=== PATIENT | female | born 1980 ===

== ENCOUNTER 2025-08-31 08:09 | Outpatient (AMB) | payer BC, SELFPAY ==
--- OUTSIDE RECORDS SUMMARY | 2024-06-24 06:20 | XMS_ITS ---
Author Organization [facility] Address [address] [place] [phone] Care Team Providers Care Zipper Ironer Name Role Phone VA MORENO Unavailable [phone] REASON FOR VISIT KNEE PAIN..ZOCDOC Encounters Encounter Location Date Provider Diagnosis [facility] [address] [place] [address] [phone] 06/24/2024 VA MORENO Plan Of Treatment No Information Progress Notes * DANIEL KRISHNADOB:[birth year] (45 yo F)Acc No.[id number]:06/24/2024 Progress Notes Patient: DANIEL PETERSON Provider: Leopoldo Moreno M.D. :1980 A ge:43 Y S ex:Female Date:06/24/2024 Address:[address] [place] [address] Subjective: * Chief Complaints: * 1 . KNEE PAIN..ZOCDOC. * Medical History: Objective: * Vitals: Assessment: Plan: * Treatment: * Images: * Electronic signature of GRADY MORENO MD on 08/31/2025 at 08:14 AM EST Sign off status: Pending * Provider: Leopoldo Moreno M.D. Date: Generated for Gaston landaverde/Pascual/eTkaylasmitting on: 08:14 AM EST
--- OUTSIDE RECORDS SUMMARY | 2024-07-22 06:00 | XMS_ITS ---
Author Organization [facility] Address [address] [place] [phone] Care Team Providers Care Physician Office Nurse Name Role Phone TIFFANIE VA Unavailable [phone] REASON FOR VISIT ZOCDOC Encounters Encounter Location Date Provider Diagnosis [facility] [address] [place] [phone] 07/22/2024 VA MORENO Plan Of Treatment No Information Progress Notes * DANIEL KRISHNADOB:[birth year] (45 yo F)Acc No.[id number]:07/22/2024 Progress Notes Patient: DANIEL PETERSON Provider: Leopoldo Moreno M.D. :1980 A ge:43 Y S ex:Female Date:07/22/2024 Address:[address] [place] [address] Subjective: * Chief Complaints: * 1 . ZOCDOC. * Medical History: Objective: * Vitals: Assessment: Plan: * Treatment: * Images: * Electronic signature of GRADY MORENO MD on 08/31/2025 at 08:14 AM EST Sign off status: Pending * Provider: Leopoldo Moreno M.D. Date: 09/21/2023 Generated for Gaston landaverde/Pascual/Meganitting on: 08:14 AM EST
--- NOTE | 2025-08-31 08:13 | A.OFFPC_ITS ---
Vital Signs 08/31/25 08:14 Height 5 ft 7 in Weight 207 lb BMI 32.4 BP 108/78 Blood Pressure Location Rt brachial Position Sitting Respiration 17 Pulse 88 Pulse Source Pulse Oximeter Temp 97.7 F Temp Source Oral Pulse Oximetry (%) 98 Oxygen Delivery Method Room Air Intake Visit Reasons: New Pt Annual PE Intake Note: Pt is here today for a New patient visit. Pt had a Physical already this year. Allergies No Known Allergies Allergy (Verified 08/31/25 08:18) Medication List - Last Reconciled 08/31/25 by Lor Ovalle MD fluocinolone-hydroq.-tretinoin 0.01-4-0.05 % ([employer]) 1 appl topical DAILY Tobacco use date assessed: 08/31/25 Dental Screening Dental Screen Date: 08/31/25 Did you have a dental visit in the last 12 months?: Yes Did you have a dental problem in the last 6 months where you did not have access to dental care?: No Was dental information given to patient?: Patient has dentist HPI New Pt Annual PE HPI Details Patient presents for new patient annual physical. 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 She is going to [place] in 5 days [facility] Medical History (Updated 08/31/25 @ 15:04 by Lor Ovalle MD) HPV (human papilloma virus) infection Anxiety PCOS (polycystic ovarian syndrome) Surgical History (Updated 08/31/25 @ 08:50 by Lor Ovalle MD) Hx of colonoscopy [place] teeth extracted Family History (Updated 08/31/25 @ 08:23 by Deidre Brownlee [facility]) Father No problems noted. Mother No problems noted. 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 1. Little interest or pleasure in doing things: not at all 2. Feeling down, depressed, or hopeless: more than half the days 3. Trouble falling or staying asleep, or sleeping too much: more than half the days 4. Feeling tired or having little energy: more than half the days 5. Poor appetite or overeating: not at all 6. Feeling bad about yourself - or that you are a failure or have let yourself or your family down: several days 7. Trouble concentrating on things, such as reading the newspaper or watching television: not at all 8. Moving or speaking so slowly that other people could have noticed. Or the opposite - being so fidgety or restless that you have been moving around a lot more than usual: not at all 9. Thoughts that you would be better off or of hurting yourself in some way: not at all Total score: 7 Depression Screening Interpretation: Negative Depression Screening Done: Yes 62949 - PHQ-9 Billing: Yes Source: Developed by Drs. Mahin Colby, Opal Lane, Aureliano Michel and colleagues, with an educational shivam from [employer]. Thrive Questionnaire Date Thrive assessed: 08/31/25 I am a: Patient What is your living situation today?: I have a steady place to live Within the past 12 months, did the food you bought not last and you didn't have the money to get more?: Never true Within the past 12 months, did you worry whether your food would run out before you got money to buy more?: Never true Do you have trouble paying for medicines?: No Do you have trouble getting transportation to medical appointments?: No Do you have trouble paying your heating and electricity bill?: No Do you have trouble taking care of your child, family member or friend?: No Do you have trouble with day-to-day activities such as bathing, preparing meals, shopping, managing finances, etc.?: No Are you currently unemployed and looking for a job?: No Are you interested in more education?: No Please select the resources that you would like help with: None THRIVE Score: 0 AUDIT C Alcohol Use Questionnaire (AUDIT-C) 1. How often do you have a drink containing alcohol?: 2-3 times a week 2. How many drinks containing alcohol do you have on a typical day when you are drinking?: 1 or 2 3. How often do you have six or more drinks on one occasion?: Never Total Score: 3 JEFF-7 AMB Questionnaire JEFF-7 Date JEFF - 7 assessed: 08/31/25 Feeling nervous, anxious, or on edge: 3 = Nearly every day Not being able to stop or control worryin = Nearly every day Worrying too much about different things: 3 = Nearly every day Trouble relaxin = More than half the days Being so restless that it is hard to sit still: 0 = Not at all Becoming easily annoyed or irritable: 3 = Nearly every day Feeling afraid as if something awful might happen: 1 = Several days Total JEFF-7 score (0-4 normal; 5-9 mild; 10-14 moderate; 15-21 severe): 15 Source: Developed by Drs. Mahin Colby, Opal Lane, Aureliano Michel and colleagues, with an educational shivam from [employer]. JEFF-7 Assessment Billing JEFF-7 Assessment Tool: JEFF-7 Assessment 08627 Review of Systems Const All systems reviewed & are unremarkable except as noted in HPI and below Eyes Reports no additional complaints ENT Reports no additional complaints Card Reports no additional complaints Resp Reports no additional complaints GI Reports no additional complaints Reports no additional complaints Musc Reports no additional complaints Physical exam (Primary Care) Vital Signs: Last Vital Signs Temp 97.7 F 08/31/25 08:14 Pulse 88 08/31/25 08:14 Resp 17 08/31/25 08:14 BP 108/78 08/31/25 08:14 Pulse Ox 98 08/31/25 08:14 Oxygen Delivery Method Room Air 08/31/25 08:14 BMI result Body Mass Index 32.4 Tobacco/Smoking Status: Tobacco use Status Tobacco use date assessed 08/31/25 08/31/25 08:25 Patient Tobacco Use Status Never used Tobacco 08/31/25 08:53 e-Cigarette/Vaping Use Never Used 08/31/25 08:53 PHQ-9: PHQ-9 Score PHQ-9: Total score 7 08/31/25 09:18 Depression Screening Interpretation: Negative Thrive Assessment: Date of Thrive Assessment Date Thrive assessed 08/31/25 08/31/25 08:25 Const General: no acute distress HENMT Head: Yes normal to inspection Ears: TM's normal bilaterally Face and sinus: Yes normal facial exam Mouth: Normal oral and palatal mucosa present Eyes General: appearance normal, both eyes and all related structures Neck Neck: Yes no lymphadenopathy and Yes supple Resp Effort & Inspection: normal respiratory effort Auscultation: clear to auscultation bilaterally Cardio Rhythm: regular rhythm Heart sounds: S1 normal heart sound present and S2 normal heart sound present GI Inspection: Yes normal to inspection Palpation (GI): Soft to palpation Percussion: Yes normal to percussion Auscultation: normal bowel sounds Office Procedures Flu Questionnaire Does the patient have a severe egg allergy?: No Does the patient have severe life threatening allergies?: No Does the patient have a fever or illness today?: No Has the patient ever had Guillain-Rogers Syndrome?: No Has the patient ever had any past reaction to a flu shot?: No Immunizations Fluarix [id number] (PF) 45 mcg (15 mcg x 3)/0.5 mL IM syringe Performing Provider: Lor Ovalle MD Performing Location: [facility] Administered by: SHAISTA De La Cruz on 08/31/25 09:18 Dose Route Admin Location Dispensed Lot Number Expiration Date NDC Furniture Finisher 0.5 mL IM Right Deltoid 0.5 mL [id number] 02/28/26 [id number] [employer] VIS Given Date VIS Provided VIS Publication Date 08/31/25 Single Vaccine 24 Eligibility Eligibility Date Funding Source Not [facility] Eligible 08/31/25 Private Coding Level of Care Code Est Pt Prev Care 40-64y(02194) Diagnoses PCOS (polycystic ovarian syndrome) E28.2 Annual physical exam Z00.00 Chronic headaches R51.9; G89.29 Additional Codes JEFF-7 Assessment Billing - JEFF-7 Assessment Tool: JEFF-7 Assessment 21038 ([id number]) PHQ-9 - 75703 - PHQ-9 Billing: Yes ([id number]) Assessment & Plan Assessment & Plan (1) PCOS (polycystic ovarian syndrome): Comment: Established with residential carpet installer Code(s): E28.2 - Polycystic ovarian syndrome Category: Medical Plan: referral to endocrinology in [facility] (2) Annual physical exam: Code(s): Z00.00 - Encounter for general adult medical examination without abnormal findings Category: Medical Plan: Well-balanced diet regular physical activity discussed with the patient. She will schedule mammogram insert up-to-date with the Pap smear and colonoscopy. Patient will return for fasting blood work in 6 months andwill obtain her medical records (3) Chronic headaches: Code(s): R51.9 - Headache, unspecified; G89.29 - Other chronic pain Category: Medical Plan: For cream migraine headaches patient will try Imitrex Orders: Orders Lipid Panel 6 Months R73.9 - Hyperglycemia, unspecified, Z00.00 - Encounter for general adult medical examination without abnormal findings TSH reflex Free T4 6 Months R73.9 - Hyperglycemia, unspecified, Z00.00 - Encounter for general adult medical examination without abnormal findings Microalbumin, Random (w Creat) 6 Months R73.9 - Hyperglycemia, unspecified, Z00.00 - Encounter for general adult medical examination without abnormal findings Influenza [id number] Immunization Today Z23 - Encounter for immunization Comprehensive Papillion. Panel Fast 6 Months R73.9 - Hyperglycemia, unspecified, Z00.00 - Encounter for general adult medical examination without abnormal findings Complete Blood Count Auto Diff 6 Months R73.9 - Hyperglycemia, unspecified, Z00.00 - Encounter for general adult medical examination without abnormal findings UA w Microscopic 6 Months R73.9 - Hyperglycemia, unspecified, Z00.00 - Encounter for general adult medical examination without abnormal findings Hemoglobin A1c 6 Months R73.9 - Hyperglycemia, unspecified, Z00.00 - Encounter for general adult medical examination without abnormal findings Referrals Endocrinology Referral E28.2 - Polycystic ovarian syndrome Medications: New sumatriptan succinate (Imitrex) take 1 tab at onset of headache; if no relief may repeat 1 tab after at least 2 hrs; max = 4 tabs/24 hr PO 10 tabs 2RF
[2025-08-31 08:14] VITALS: BP 108/78; PULSE 88; RESP 17; TEMP 36.5; O2SAT 98; BMI 32.4
--- OUTSIDE RECORDS SUMMARY | 2025-08-31 08:15 | XMS_ITS | Patient Health Record ---
Author Organization [facility] Address [address] [place] [phone] Care Team Providers Care Housekeeper Name Role Phone VA MORENO Unavailable [phone] Reason For Referral No Information Plan Of Treatment No Information Insurance Providers Payer Name Payer Address Payer Phone Subscriber Number Group Number Insured Name Patient Relationship to Insured Coverage Start Date Coverage End Date [facility] [address] [place], [place] [id number] [phone] [id number] DANIEL KRISHNA Self - patient is the insured
--- OUTSIDE RECORDS SUMMARY | 2025-08-31 08:15 | XMS_ITS | Data Portability ---
Author Organization [facility], [facility] Address [address] [place] [address] Support Name Relationship Address Phone DANIEL MCDANIELS self [address] [place] [address] Assessment Encounter Date Assessment Date Assessment LastModified by Organization Details LastModified Time 08/17/2024 08/17/2024 Plan: 1. Change PT focus to left ankle 2. Change from diclofenac to meloxicam 3. We discussed PRP for the left ankle if the patient does not see improvement with physical therapy 4. Follow-up in 6 to 8 weeks for reassessment [email or web address] Not available 08/17/2024 12:58:00 10/04/2024 10/04/2024 Plan: 1. Continue physical therapy 2. Clear to start Pilates 3. We discussed PRP for the left ankle if the patient does not see improvement with physical therapy 4. Start intrinsic foot strengthening exercises 5. Follow-up for increasing pain [email or web address] Not available 10/04/2024 18:00:54 Plan of Treatment Reminders Order Date Submit Date Provider Name Organization Details Last Modified By Last Modified Time Details Appointments None recorde d. Lab None recorde d. Referral physica l therapi st referra l 2023 11:54: 56 024 Pilo davis MD Not available [employer] 14:53:14 phys[address] l therapi st referra l 2023 14:58: 38 024 Pilo davis MD Not available [employer] 13:07:21 Procedures None recorde d. Surgeries None recorde d. Imaging XR, ankle, 3 or more view 2023 15:33: 44 024 Pilo davis MD [facility] [address], [place], [address], BOBBY DUNNE 4 10:27:54 MRI, knee, w/o contras t 2023 15:42: 10 024 Clif Rojas PA-C [facility] ([facility] [address], [place], [address], Pamela Parmar 4 09:07:16 XR, knee, 4 or more view 2023 15:10: 00 024 CHIDI Esc[facility] [address], [place], [address], Pamela Parmar 4 09:07:17 MedicationOrders None recorde d. VaccineOrders None recorde d. Patient TargetsNo targets recorded. Patient InstructionsNo instructions recorded. Reason for Referral Physical Therapist Referral for Strain of muscle and/or tendon of lower leg LEFT POST TIB/FHL TENDINOSIS Ankle ROM & mobility Posterior chain strengthening Foot/Ankle/Knee alignment Strengthening and stability exercises Proprioception and balance training Functional and sport-specific exercises Progress to DL & SL plyos Referring Physician: Pilo Pratt, Orthopedic Surgery, Encounter Date: 08/17/2024 Physical Therapist Referral for Injury of thigh Core/Hip girdle/Quad strengthening Glute Activation/strengthening Rotation/Anti-rotation stability exercises Adductor flexibility/release Foot/Ankle/Knee/Hip alignment Pelvic alignment into neutral Postural cueing and biomechanics Progress to plyos and SL exercises Referring Physician: Pilo Pratt, Orthopedic Surgery, Encounter Date: 07/13/2024 Results Created Date Observation Date Name Description Value Unit Range Abnormal Flag Specimen Type Note LastModifiedBy Organization Detail LastModifiedTime 06/29/2024 06/29/2024 knee 4 view [email or web address]=yoShTalKS3lHwfYRt1u%6HZQseEgolq8qcxn%1Ti2UWm5 djBotT3tZkKWeofFu8NyHXGjLfeGFH4vHjZThgb54b1836KT8YkqG%5JUN9ViMdJavPaR Not Available [facility] , [address] [employer] [address] [facility] [address] [address] , [place] , [address], , 06/29/2024 15:24:22 06/29/2024 06/29/2024 knee 4 view [email or web address]=hiExZgoEM4zZfvJRt0e%8ZQFyxHdotj9ysmc%1Gr7SUt8 xdPqrQ9qJaOEqwfIh0KtNCUzKmsTLJ7dLdTSrct77v2401BT7SdfL%2JCD6LzYyXukIjK Not Available [facility] , [address] [address] , [place] , [address], , 06/29/2024 15:24:24 06/30/2024 06/30/2024 ankle 3 view [email or web address]=xyKnQpsHW3fZtgZPk4s%2YHYmrTfvid1uaxe%5Ou0YAy4 xmSvuH8zDqFYuksXe3UjBQCeKtlMZF2hKlQZdzt58f9417CZ1NvjB4JZ5HqZpSfmKrL Not Available [facility] , [address] [employer] [facility] [address] [address] , [place] , [address], , 06/30/2024 15:40:46 06/30/2024 06/30/2024 ankle 3 view [email or web address]=qyHqYpjBU0xFgqHBk0s%8KFUdcYkmek2grkn%4Em1TXy1 yeGzdM0mYkXRnmjAl2OrUBJtJjuPFD4pBjPFfve01p8918HK1EyqY8JI9IhTsSayFwF Not Available [facility] , [address] , [place] , [address], [place] , 06/30/2024 15:40:48 07/07/2024 07/07/2024 MR, knee (C-) right CPT 32927 [facility] Ac cession Number: [id number] Patient Name: Daniel Mcdaniels Date of : 1980 Date of Exam: 07-07-2024 Referring Physician: Clif Rojas [facility]) [address], [address] [place] [address] Exam: MR Knee (C-) CPT 38528 - Right [facility] History: Pain Findings: Medial meniscus is intact Small marginal osteophytes in the medial compartment. Lateral meniscus is intact Small marginal osteophytes in the lateral compartment The ACL and PCL are intact The MCL is intact The LCL complex including the biceps femoris, popliteus and fibular collateral ligaments are intact The medial and lateral patellar retinacula are intact Thinning and irregularity within patellar apex, lateral patellar facet, trochlear groove and lateral femoral trochlear cartilage. Small patellofemoral compartment osteophytes. The extensor mechanism is intact. 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 Mild tricompartmental osteophytosis. No evidence of meniscus or ligament tear. Electronically Signed By: Sacha Rojas PA-C [facility] ([facility] , [address] , [place] , [address], [place] , 11/15/2024 19:25:43 07/10/2024 07/10/2024 MR ankle wo No observation recorded. LONNIE FXO [facility] , [address] , [place] , [address], [place] , 07/13/2024 12:09:27 07/10/2024 07/10/2024 MRI, ankle , w/o contr ast No observation recorded. SREYPISEY [facility] , [address] [facility],[address] , [place] , [address], [place] , 07/13/2024 12:07:35 Result Notes Documentation Provider Name and Address Organization Details Recorded Time Xr, Knee, 4 Or More View : [email or web address] ncrypted=tbFrUavYU2hQljGCe 6g%3MTMnyRatub3uyty%2Fg9IQ o8xzHjoR1zLjNUpgeUe6JcZLYo LegDHI0jTxNFvtv44u8084LD4J qaH%4ODG9LmUsNymHwJ Not Available [facility] 06/29/2024 15:24:22 Xr, Knee, 4 Or More View : [email or web address] ncrypted=ocNjLypJJ3oImdWTn 6g%0IEQhlRfkdi9wnuf%2Fg9IQ h4tfBoiG4mUfJHylhKj3PvNKHk RkyHIN7pXzTOvlq17o3950DR0M qaH%8NKF5JtOmKczBzY Not Available [facility] 06/29/2024 15:24:24 Xr, Ankle, 3 Or More View : [email or web address] ncrypted=cqErEsuBM5oYylHLq 6g%8UZYdgMamoz7xvdz%2Fg9IQ s3uaWwpI9bUnCQbaqPz4KkPYYa FfsUDM2sJuMYkbb89d6082MN6N tqX3XX2VbCuFthZwT Not Available [facility] 06/30/2024 15:40:46 Xr, Ankle, 3 Or More View : [email or web address] ncrypted=daBoGzxLV1yKmpDMm 6g%0KDKrnXedvz5efms%2Fg9IQ m4mfMnuS2fItBNkfsSg4FjEPFt MxjHZJ8cYlDXrjt35g3662KJ3K xpW5XL6FkItXjfQnA Not Available [facility] 06/30/2024 15:40:48 Mri, Knee, W/o Contrast : [facility] Accession Number: [id number] Patient Name: Daniel Mcdaniels Date of : 1980 Date of Exam: 07-07-2024 Referring Physician: Clif Rojas [facility]) [address], [address] [place] [address] Exam: MR Knee (C-) CPT 35150 - Right Room Description: [facility] 3T MRI right knee History: Pain Findings: Medial meniscus is intact Small marginal osteophytes in the medial compartment. Lateral meniscus is intact Small marginal osteophytes in the lateral compartment The ACL and PCL are intact The MCL is intact The LCL complex including the biceps femoris, popliteus and fibular collateral ligaments are intact The medial and lateral patellar retinacula are intact Thinning and irregularity within patellar apex, lateral patellar facet, trochlear groove and lateral femoral trochlear cartilage. Small patellofemoral compartment osteophytes. The extensor mechanism is intact. 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 Mild tricompartmental osteophytosis. No evidence of meniscus or ligament tear. Electronically Signed By: Sacha Rojas PA-C [address], [place], [address], [facility] 11/15/2024 19:25:43 Problems Name Problem SNOMED Code Status Onset Date Resolution Date Notes Provider Name and Address Organization Details Recorded Time Ankle pain 292815446 Active 024 Pilo darnell MD [address], [place], [address] , [facility] 06/30/2024 17:58:11 Injury of thigh 3168643 Active 024 Pilo darnell MD [address], [place], [address] , [facility] 07/13/2024 16:13:14 Strain of muscle and/or tendon of lower leg 157113708 Active 025 Pilo darnell MD [address] [facility] [address], [place], [address] , [facility] 10/04/2024 17:57:07 Problem Notes None recorded. Medical Equipment None Reported. Allergies No known drug allergies Medications Name Authored On Sig Start Date Stop Date Status Note Indication Fill Status Repeat Number Dispense Quantity LastModified by Organization Details LastModified Time diclo fenac sodiu m 75 mg table t,del ayed relea se 16:14:52 Take 1 tabl et twic e a day by oral rout e with meal (s) for 30 days . 08/17 aborted Nontraumati c rupture of tibialis posterior tendon Not availab le 3 Not Available Not Available [facility] 08/17/2024 11:18:52 melox icam 15 mg table t 13:54:10 TAKE 1 TABL ET BY MOUT H PAIGE Y AFTE R MEAL S active Not Available Not availab le 0 Not Available Not Available [facility] 08/29/2024 13:54:10 Vitals Date Recorded Body height Body mass index (BMI) Body weight Provider Name and Address Organization Details Last Updated DateTime 10/04/2024 167.64 cm 32.9 kg/m2 87711.84 g LONNIE NOP [facility] 10/04/2024 16:07:50 Date Recorded Body height Body mass index (BMI) Body weight Provider Name and Address Organization Details Last Updated DateTime 06/29/2024 167.64 cm 32.9 kg/m2 16696.84 g YULI PENNINGTON [facility] 06/29/2024 15:09:23 Date Recorded Body height Body mass index (BMI) Body weight Provider Name and Address Organization Details Last Updated DateTime 06/30/2024 167.64 cm 32.9 kg/m2 69023.84 g LONNIE NOP [facility] 06/30/2024 15:31:56 Date Recorded Body height Body mass index (BMI) Body weight Provider Name and Address Organization Details Last Updated DateTime 07/13/2024 167.64 cm 32.9 kg/m2 04964.84 g GOLDIE BASSETT [facility] 07/13/2024 14:27:49 Date Recorded Body height Body mass index (BMI) Body weight Provider Name and Address Organization Details Last Updated DateTime 08/17/2024 167.64 cm 32.9 kg/m2 39066.84 g SREYPSTEWARTY NOP [facility] 08/17/2024 11:16:52 Social History Question Answer Notes LastModified by Organizat ion Details LastModified Time Tobacco Smoking Status Never Smoker SREYPISEY NOP [facility] 06/30/2024 15:32:36 What Is Your Level Of Alcohol Consumption? Occasional SREYPISEY [facility] 06/30/2024 15:32:36 Have you ever been counseled for unhealthy alcohol use? No SREYPISEY [facility] 06/30/2024 15:32:36 What is your relationship status? GOLDIE [facility] 07/13/2024 14:27:43 Social History Observation Description Date Observed Sex Unknown 07/27/2025 Legal Sex Female Status Not (finding) 08/31/20 25 No social history survey screeners recorded No social history SDOH screeners recorded Functional Status Question Answer Note LastModified by Organizat ion Details LastModified Time Do you or have you ever used any other forms of tobacco or nicotine? No SREYPISEY [facility] 06/30/2024 15:32:36 What is your level of alcohol consumption? Occasional SREYPISEY NOP [facility] 06/30/2024 15:32:36 How many times per week do you consume alcohol? Less than 1 time per week SREYPISEY [facility] 06/30/2024 15:32:36 Do you use any illicit or recreational drugs? No SREYPISEY [facility] 06/30/2024 15:32:53 Do you or have you ever used e-cigarettes or vape? Never used electronic cigarettes GOLDIE [facility] 07/13/2024 14:27:43 No Functional Screening assessment recorded No Functional SDOH screeners recorded Mental Status None recorded. No Mental Screening assessment recorded No Mental SDOH screeners recorded Family History Nothing Reported. Medical History Condition Response Allergies/Hayfever N Coronary Artery Disease N Anxiety/Depression Y Breathing or lung disorders N Emphysema N Nerve Disorders N Thyroid Problems N COPD N Pacemaker N Anemia N Kidney/Bladder Problems N Vascular Disease N Heart Trouble N Heart Attack (CT) N Gastrointestinal Disease N Cholesterol N Diabetes N Autoimmune disease N Inflammatory Joint disease N Bleeding Disorder N Orthotics N Arthritis N Seizures/Epilepsy N Blood Clot N AIDS/HIV N Congestive Heart Failure (CHF) N Acid Reflux (GERD) N Cancer N Stroke N Asthma N Circulation Problems N Peripheral Vascular Disease N Sleep Apnea N Hepatitis N Heart Disease N Rheumatoid Arthritis N Arrhythmia N Pulmonary Embolism N Headaches N Fibromyalgia N Hypertension N Osteoporosis N Gynecological HistoryNo gynecological history recorded. Obstetrics History GPAL:G 0 P 0 0 0 0 Past Encounters Encounter ID Performer Location Encounter Start Date Encounter Closed Date Diagnosis/Indication Diagnosis SNOMED-CT Code Diagnosis ICD10 Code Diagnosis IMO Codes Diagnosis Note [id number] CHIDI Escobar 3rd floor [address] [employer] [facility] [employer] [facility] [place] [address] 06/29/2024 14:58:56 07/23/2024 09:07:16 Pain of right knee joint 7157208251 21802 M25.561 851182 [id number] Pilo darnell MD [facility] [address] [place] [address] 06/30/2024 15:18:27 07/20/2024 10:27:54 Ankle pain 673549353 M25.572 34784106 -Posterior tibialis and FHL tendinopat hy with likely split tear Plan:1. MRI left ankle to assess for medial tendon split tear2. Diclofenac -Benefits and risks were thoroughly discussed with the patient. The patient was instructed to monitor for GI upset and to avoid dehydratio n while on the medication . Recommende d duration of use was also discussed. The patient felt comfortabl e starting the medication and would like to proceed with its use.3. Cam walking boot secondary to left ankle pain4. Follow-up after imaging [id number] Pilo darnell MD [facility] [address] [place] [address] 07/13/2024 14:21:47 08/02/2024 13:07:21 Ankle pain 075843882 M25.572 53725722 -Posterior tibialis and FHL tendinopat hy with split tear Plan:1. Recommend restarting formal physical therapy2. Diclofenac -as needed3. We had an in-depth discussion about various therapeuti c injections including: Steroids ( cortison e ) and PRP injections . The benefits, risks, expected response, frequent side effects, post-injec tions protocols , insurance coverage vs. cost were thoroughly covered. The patient is interested in possibly pursuing PRP if she is not responding to physical therapy4. Follow-up in 6 weeks for reassessme nt Injury of thigh 3628096 S76.311D 2511594888 -Likely mild popliteal muscle strain as well Pilo darnell MD [facility] [address] [place] [address] 08/17/2024 11:01:26 09/12/2024 14:53:14 Ankle pain 058175833 M25.572 92698135 Injury of thigh 9224545 S76.311D 7269191360 -Popliteal strain Strain of muscle and/or tendon of lower leg 393087238 S86.112A [id number] Pilo darnell MD [facility] [address] [place] [address] 10/04/2024 16:03:19 10/22/2024 08:14:44 Ankle pain 533361982 M25.572 67072653 Injury of thigh 3970120 S76.311D 3939071832 -Popliteal strain Strain of muscle and/or tendon of lower leg 485214751 S86.112A [id number] Health Concerns Section Related Observation LastModified by Organization Detai ls LastModified Time None Recorded Concern Status LastModified by Organization Details LastModified Time None Recorded SDOH Concern Status LastModified by Organization Detai ls LastModified Time None Recorded Advance Directives Directive None Recorded Payers Insurance Date Sequence Insurance Name Policy Number Policy Saldana Covered Member ID Saldana Member ID Guarantor Name 10/22/2024 1 DENI (PPO) [id number] Daniel Mcdaniels [id number] Daniel Mcdaniels Notes Date Note Type Note Provider Name and Address Organization Details Recorded Time 06/29/2024 text/html I am seeing the patient today under the supervision of Dr. Mann who was available but who did not see the patient.History: This pleasant patient presents today for a new problem of right knee pain. Pain started specifically in April. She had been biking developed some pain posteriorly about the knee but now presents today with pain about the lateral aspect. Getting worse. Increased with standing walking. Does have a history about a year ago playing softball where she twisted her knee and has developed pain laterally. She has also had an injury where they slipped going down stairs. Pain is sharp with twisting. Gets catching and locking. Does take Tylenol and Aleve without significant benefit.PMH/PSH/MEDS /ALL/FMH/SOC HX/ROS are reviewed in detail per my medical intake sheet.General Exam: Vital signs are as noted belowMental status: Alert and lucid. Normal insight, affect and grooming.MANAGER IMAGE: Gross motor coordination is intact. No spasticity or clonus noted.Extremities:Ca lves are soft non tender, skin intact.Orthopedic Examination:Patient has a negative straight leg raise bilaterally.Right Hip: [ ] Hip exam shows no tenderness to palpation. There is full range of motion throughout all planes without irritability. There is full muscle strength. There is negative straight leg raise. Negative for signs of impingement.Right Knee: Tenderness quite significant laterally with positive Howell's test. Mild tenderness at the borders of the patella. Full range of motion. No effusion, erythema or warmth.Left Knee: ROM is full, stability intact both anterior, posterior, and varus/valgus stress at both 0 and 30 degrees of flexion. No meniscal tenderness. Negative Harris's maneuver. No crepitus,no effusion, 5/5 strength.Antalgic gait pattern favoring the right side. Full strength and sensation distally.X-rays: Radiographs 4 views ordered obtained and reviewed today in the office of the right knee show decent preservation of joint spaces throughout all 3 compartmentsAssessme nt: Lateral meniscus tear with underlying patellofemoral syndrome right kneePLAN: Recommend an MRI. Should the MRI be positive I have already discussed with them today the role of arthroscopy with lateral meniscal debridement. Should this be negative would recommend physical therapy and bracing.[employer] [facility] speech recognition electric powerline examiner software was used to create portions of this document. An attempt at proofreading has been made to minimize errors. Please call for corrections. Clif Rojas PA-C [address], [place], [address], [facility] 06/30/2024 07:51:49 06/30/2024 text/html This is a 43-year-old active woman, [place] fam who recently moved to the area from [facility] presenting with 2 issues: And ongoing left medial ankle pain which has been diagnosed with posterior tibialis tendinosis. The patient did a course of physical therapy, has been using custom orthotics and reported some improvement initially earlier this year but unfortunately the pain has worsened significantly over the summer and is now fairly constant. She thinks she may have further worsened her ankle pain when she slipped on the stairs recently. She now has 8/10 pain when she is walking and standing. She denies any weakness. She also reports ongoing right posterior knee pain which started about a year ago. The pain has been fairly mild but has been worsening recently after biking. She has an MRI scheduled for her right knee. Pilo Pratt MD [address], [place], [address], [facility] 06/30/2024 17:59:02 07/13/2024 text/html Clinical update: The patient is presenting to review her MRIs. This is a 43-year-old active woman, [place] fam who recently moved to the area from [facility] presenting with 2 issues: And ongoing left medial ankle pain which has been diagnosed with posterior tibialis tendinosis. The patient did a course of physical therapy, has been using custom orthotics and reported some improvement initially earlier this year but unfortunately the pain has worsened significantly over the summer and is now fairly constant. She thinks she may have further worsened her ankle pain when she slipped on the stairs recently. She now has 8/10 pain when she is walking and standing. She denies any weakness. She also reports ongoing right posterior knee pain which started about a year ago. The pain has been fairly mild but has been worsening recently after biking. She has an MRI scheduled for her right knee. Pilo Pratt MD [address] [facility] [address], [place], [address], [facility] 07/13/2024 16:13:26 08/17/2024 text/html Clinical update: The patient has been doing physical therapy and reports improvement in both her ankle and her knee though the physical therapy has been mainly focused on her knee pain. She continues to have some posterior and lateral knee pain especially with rotation. And she continues to have medial left ankle pain which has improved but not resolved. She did not tolerate the diclofenac so she has not been taking any anti-inflammatories. This is a 43-year-old active woman, [place] fam who recently moved to the area from [facility] presenting with 2 issues: And ongoing left medial ankle pain which has been diagnosed with posterior tibialis tendinosis. The patient did a course of physical therapy, has been using custom orthotics and reported some improvement initially earlier this year but unfortunately the pain has worsened significantly over the summer and is now fairly constant. She thinks she may have further worsened her ankle pain when she slipped on the stairs recently. She now has 8/10 pain when she is walking and standing. She denies any weakness. She also reports ongoing right posterior knee pain which started about a year ago. The pain has been fairly mild but has been worsening recently after biking. She has an MRI scheduled for her right knee. Pilo Pratt MD [address] [facility] [employer] [facility] [address], [place], [address], [facility] 08/17/2024 12:58:14 10/04/2024 text/html Clinical update: The patient has been doing physical therapy for her foot, ankle and knee pain. She reports that she is 90% better. She is interested in starting Pilates and a progressive return to biking This is a 43-year-old active woman, [place] fam who recently moved to the area from [facility] presenting with 2 issues: And ongoing left medial ankle pain which has been diagnosed with posterior tibialis tendinosis. The patient did a course of physical therapy, has been using custom orthotics and reported some improvement initially earlier this year but unfortunately the pain has worsened significantly over the summer and is now fairly constant. She thinks she may have further worsened her ankle pain when she slipped on the stairs recently. She now has 8/10 pain when she is walking and standing. She denies any weakness. She also reports ongoing right posterior knee pain which started about a year ago. The pain has been fairly mild but has been worsening recently after biking. She has an MRI scheduled for her right knee. Pilo Pratt MD [address] [place] [address] [address], [place], [address], [facility] 10/04/2024 18:01:11 Care Team Name Role Member ID Specialty Address Phone None Recorded. OBGyn Episode No OBEpisode recorded.
--- OUTSIDE RECORDS SUMMARY | 2025-08-31 08:15 | XMS_ITS ---
[facility] Name [facility] Organization Unknown Encounters Encounter Type Encounter Reason Primary Diagnosis Location Date Ambulatory no current diagnosis no current diagnosis [facility] 08/15/2025 Ambulatory [facility] 06/22/2024 Care Team Organization Name Specialty Phone Email Start Date End Da te [facility] 08/16/2025 [facility] 08/15/2025
--- OUTSIDE RECORDS SUMMARY | 2025-08-31 08:15 | XMS_ITS | Clinical Summary ---
Author Organization [facility] Address [address] [address] Phone Care Team Providers Care Digital Intern Name Role Phone Unavailable Primary Care Provider Unavailabl e Social History Tobacco Use Types Packs/Day Years Used Date Smoking Tobacco: Never Assessed Education Answer Date Recorded Are you interested in more education? Not on agus e 07/14/2024 Are you concerned about learning? Not on file 07/14/2024 No 07/14/2024 No 07/14/2024 Digital Access Answer Date Recorded No 07/14/2024 No 07/14/2024 Reliable internet access at home? Not on file 07/14/2024 Device with a working camera? Not on file Comments Unknown Sex and Gender Information Value Date Recorded Sex Assigned at Not on file Legal Sex Female 5:27 PM EST Gender Identity Not on file Sexual Orientation Not on file Plan of Treatment Health Maintenance Due Date Last Done Comments Adult Td,Tdap Booster 1981 DEPRESSION SCREENING 1993 SMOKING Hx and SMOKELESS TOB ACCO SCREENING 1994 HEPATITIS C SCREENING 1999 HIV ONE-TIME SCREENING (18-6 5 YEARS) 1999 PAP SMEAR 2002 MAMMOGRAM 2021 INFLUENZA VACCINE (#1) 2025 COVID-19 VACCINE (2024-2 6 season) 2025 HEPATITIS A VACCINES Aged Out No long er eligible based on patient's age to complete this topic HIB VACCINES Aged Out No longer eligi ble based on patient's age to complete this topic MENINGOCOCCAL VACCINES (ACWY) Aged Out No longer eligible based on patient's age to complete this topic MENINGOCOCCAL VACCINES (B) Aged Out N o longer eligible based on patient's age to complete this topic PNEUMOCOCCAL VACCINES (0-49 years) Aged Out No longer eligible based on patient's age to complete this topic Medical Devices Not on file Additional Source Comments The information contained in this document represents components of the legal health record. It is not the complete legal health record.[facility]
== END 2025-08-31 13:40 | disposition home or self-care (01) ==
PROVIDERS: PCP Internal Medicine; Visit Provider Internal Medicine
DX: Z00.00 Encounter for general adult medical examination without abnormal findings (principal); E28.2 Polycystic ovarian syndrome; R51.9 Headache, unspecified; G89.29 Other chronic pain; Z23 Encounter for immunization

== ENCOUNTER → 2025-08-31 08:09 | Outpatient (BNVA) | payer BC, SELFPAY | PROVIDERS: PCP Internal Medicine; Visit Provider Internal Medicine | DX: Z00.00 Encounter for general adult medical examination without abnormal findings (principal); E28.2 Polycystic ovarian syndrome; R51.9 Headache, unspecified; G89.29 Other chronic pain; Z13.31 Encounter for screening for depression; Z13.39 Encounter for screening examination for other mental health and behavioral disorders; Z23 Encounter for immunization; Z87.42 Personal history of other diseases of the female genital tract | CPT/HCPCS: 90471; 90656; 96127 ==